=== PATIENT | female | born 1955 | race African-American/Black ===

== ENCOUNTER 2024-08-24 13:59 | Outpatient (CLI) | payer MEDICARE, MEDICAID, SELFPAY ==
--- NOTE | ~2024-08-24 | MM_ITS ---
EXAMINATION: MM screening tirso BI w jeanette HISTORY: Screening TECHNIQUE: Craniocaudal and mediolateral oblique 3-D tomosynthesis images were obtained and synthetic 2-D images were generated. CAD analysis was submitted and interpreted. COMPARISON: No prior mammogram is available for comparison at this institution. BREAST PARENCHYMAL COMPOSITION: Not Dense: The breasts are almost entirely fatty. FINDINGS: There is no evidence of suspicious mass, calcification, or architectural distortion to sugg est malignancy in either breast. There has been no suspicious interval change. IMPRESSION: 1. No mammographic evidence of malignancy. 2. Recommend routine screening mammography in one year. BI-RADS Category 1: Negative Reviewed, dictated and finalized at location B.
--- OUTSIDE RECORDS SUMMARY | 2024-08-24 14:04 | XMS_ITS ---
Author Organization Formerly [facility] Address [address] [place] [address] Care Team Providers Care Modeling Analyst Name Role Phone Joe Riley Primary Care Provider REASON FOR VISIT issues with meds Social History Sex Assigned At : Social History Observation Description Sex Assigned At Female Encounters Encounter Location Date Provider Diagnosis [address] [place] [address] 05/24/2024 Joe Riley Plan Of Treatment No Information Progress Notes * Javier HEINOB:1955 (69 yo F)Acc No.[id number]:05/24/2024 UNLOCKED PROGRESS NOTE Progress Notes Patient: Dyan DWYER Provider: Magdalene Riley :1955 A ge:68 Y S ex:Female Date:05/24/2024 Address:[address] [place] [address], [address], [id number] Subjective: * Chief Complaints: * 1 . Issues with meds. * Medical History: Objective: * Vitals: Assessment: Plan: * Treatment: * * Electronic signature of Rosario Riley , [id number] on 08/24/2024 at 02:03 PM CDT Sign off status: Pending * Provider: Magdalene Riley Date: 0 05/24/2024 Generated for Emilia cole/Richard/eTransmitting on: 0 08/24/2024 02:03 PM CDT
== END 2024-08-24 14:00 | disposition home or self-care (01) ==
PROVIDERS: PCP Internal Medicine; Visit Provider Emergency Medicine
DX: Z12.31 Encounter for screening mammogram for malignant neoplasm of breast (principal)
CPT/HCPCS: 77063; 77067